=== PATIENT | female | born 1975 | race Caucasian/White ===

== ENCOUNTER 2022-11-05 12:59 | Outpatient (CLI) | payer OTHER, BC, SELFPAY | END 2022-11-05 13:00 | disposition home or self-care (01) | LOC: AMB 11-27 17:27 | PROVIDERS: Visit Provider Family Medicine | DX: S49.92XA Unspecified injury of left shoulder and upper arm, initial encounter (principal); V49.40XA Driver injured in collision with unspecified motor vehicles in traffic accident, initial encounter; Y92.413 State road as the place of occurrence of the external cause | CPT/HCPCS: A0425; A0429 ==

== ENCOUNTER 2022-11-05 13:16 | Emergency (ER) | payer OTHER, SELFPAY ==
[2022-11-05 13:27] VITALS: BP 162/99; PULSE 107; RESP 17; TEMP 36.9; O2SAT 96; BMI 29.3
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
[2022-11-05 14:00] VITALS: BP 149/88; PULSE 102; RESP 18; O2SAT 98
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
[2022-11-05 15:00] VITALS: BP 143/84; PULSE 94; RESP 16; O2SAT 98
[2022-11-05 15:30] VITALS: BP 137/93; PULSE 96; RESP 18; O2SAT 96
[2022-11-05] MEDS: ACETAMINOPHEN 500 MG TABLET 1000 MG PO (15:36)
== END 2022-11-05 16:23 | disposition home or self-care (01) ==
PROVIDERS: Emergency Provider Family Medicine
DX: S49.92XA Unspecified injury of left shoulder and upper arm, initial encounter (principal); V89.2XXA Person injured in unspecified motor-vehicle accident, traffic, initial encounter
CPT/HCPCS: 71101; 73000; 73030; 99284; A9270